=== PATIENT | male | born 1960 | race Asian ===

== ENCOUNTER 2021-10-08 08:44 | Emergency (ER) | payer OTHER ==
[~2021-10-08] VITALS: Ht 157.5 cm; Wt 77.1 kg
[2021-10-08] MEDS ORDERED: METF500C PO (09:11)
[2021-10-08] MEDS ORDERED: ZOCOR20 MG PO (09:12)
[2021-10-08] MEDS ORDERED: SILVADENE20 G3 TOP (09:19)
== END 2021-10-08 10:00 | disposition home or self-care (01) ==
LOC: ER 08:44
DX: T22.212A Burn of second degree of left forearm, initial encounter (principal); T24.212A Burn of second degree of left thigh, initial encounter; T31.0 Burns involving less than 10% of body surface; X11.8XXA Contact with other hot tap-water, initial encounter
CPT/HCPCS: 16020; 99283-25